=== PATIENT | female | born 1935 | race Caucasian/White ===

== ENCOUNTER → 2017-04-08 | Outpatient (CLI) | payer OTHER ==
[~2017-04-08] MED LIST: ASA81BEC PO; CALCIUM 500+D1 EAC2 PO; FOSAMAX 70 MG T70 MG PO; HYDROCHLOROTHIA25 M1 PO; K-DUR10 ME1 PO; LIPITOR10 MG PO; LOTREL 10-20 M1 EACH PO; NOLVADEX20 MG PO; VITAMIN D1000 UNI1 PO
== END ==
LOC: RAD 05:46
DX: Z12.31 Encounter for screening mammogram for malignant neoplasm of breast (principal)